=== PATIENT | female | born 1985 | race Two or more races ===

== ENCOUNTER 2023-08-10 01:25 | Inpatient (IN) | payer MEDICAID ==
[~2023-08-10] VITALS: Ht 170.2 cm; Wt 70.9 kg
[~2023-08-10 01:25] MED LIST: RISP0.5T39 PO
[2023-08-10 03:25] LABS: BASOPHILS % (AUTO) 0.2 % (0.0-2.0); EOSINOPHILS % (AUTO) 0 % (1.0-6.0); HEMATOCRIT 35.7 % (36-46); LYMPHOCYTES # (AUTO) 0.9 K/uL (1.0-4.8); LYMPHOCYTES % (AUTO) 8.5 % (22.0-44.0); MEAN CORPUSCULAR HGB CONC 33.7 G/dL (31.0-37.0); MEAN CORPUSCULAR VOLUME 92 fL (80-100); MONOCYTES # (AUTO) 0.3 K/uL (0.1-1.0); MONOCYTES % (AUTO) 3.2 % (2.0-9.0); NEUTROPHILS # (AUTO) 9.1 K/uL (1.8-7.7); PLATELET COUNT (AUTO) 292 K/uL (150-450); RED BLOOD CELL COUNT(AUTO) 3.88 MIL/uL (4.00-5.20); RED CELL DISTRIBUTION WIDTH 13.6 % (11.5-14.5); WHITE BLOOD COUNT (AUTO) 10.3 K/uL (4.5-11.0)
[2023-08-10 03:30] LABS: NEUTROPHILS % (AUTO) 88.1 % (40.0-70.0)
[2023-08-10 03:34] LABS: CHLORIDE 103 mmol/L (98-107); POTASSIUM 3.6 mmol/L (3.5-5.1); SODIUM SERUM 137 mmol/L (136-145)
[2023-08-10 03:35] LABS: ANION GAP 9 mmol/L (8-16); CALCIUM, TOTAL 8.9 mg/dL (8.8-10.5); CARBON DIOXIDE 25 mmol/L (22-29); CREATININE 0.82 mg/dL (0.60-1.30); GLOMERULAR FILTR. RATE CALC > 60 mL/min (>60); GLUCOSE,RANDOM 114 mg/dL (70-110); UREA NITROGEN, BLOOD 17 mg/dL (7-18)
[2023-08-10 03:42] LABS: ALANINE AMINOTRANSFERASE 20 U/L (12-78); ALBUMIN 3.8 g/dL (3.4-5.0); ALKALINE PHOSPHATASE 68 U/L (46-116); ASPARTATE AMINOTRANSFERASE 20 U/L (15-37); BILIRUBIN,TOTAL 0.2 mg/dL (0.1-1.0); TOTAL PROTEIN, SERUM 7.4 g/dL (6.4-8.2)
[2023-08-10 03:43] LABS: ALCOHOL, BLOOD (SERUM) < 3 mg/dL (0-10)
[2023-08-10] MEDS ORDERED: DiphenhydrAMINE HCL 50 MG/ML VIAL IM ONE (03:45)
[2023-08-10] MEDS ORDERED: PERTUSS(ACELL),DIPH,TET VAC/PF 0.5 ML SYRINGE IM. ONE (03:45)
[2023-08-10] MEDS ORDERED: HALOPERIDOL 5 MG TABLET PO PRN (03:45)
[2023-08-10] MEDS ORDERED: LORazepam 2 MG TABLET PO PRN (03:45)
[2023-08-10] MEDS ORDERED: LORazepam 2 MG/ML VIAL IM ONE (03:45)
[2023-08-10] MEDS ORDERED: HALOPERIDOL LACTATE 5 MG/ML VIAL IM ONE (03:45)
[2023-08-10] MEDS ORDERED: ZOLPIDEM TARTRATE 10 MG TABLET PO PRN (03:45)
[2023-08-10 05:20] LABS: COVID AG,FIA SOURCE NASAL SWAB
[2023-08-10 05:51] LABS: SARS-COV2 (COVID) ANTIGEN,FIA Negative (Negative)
[2023-08-10 11:07] LABS: APPEARANCE,URINE CLEAR (CLEAR); BILIRUBIN,URINE NEGATIVE (NEGATIVE); COLOR,URINE YELLOW (YELLOW); GLUCOSE, URINE (UA) NEGATIVE (NEGATIVE); KETONES,URINE NEGATIVE (NEGATIVE); LEUKOCYTE ESTERASE ,URINE NEGATIVE (NEGATIVE); NITRATE,URINE NEGATIVE (NEGATIVE); OCCULT BLOOD,URINE MODERATE (NEGATIVE); PROTEIN,URINE 30-70 mg/dL (NEGATIVE); SPECIFIC GRAVITIY, URINE 1.031 (1.003-1.030); UROBILINOGEN,URINE <=1.0 mg/dL (<=1.0)
[2023-08-10 11:12] LABS: ALCOHOL, URINE DRUG SCREEN NEGATIVE (NEGATIVE); AMPHET/METH SCREEN,URINE POSITIVE (NEGATIVE); BARBITURATE SCREEN, URINE NEGATIVE (NEGATIVE); BENZODIAZEPINES SCREEN,URINE NEGATIVE (NEGATIVE); CANNABINOID SCREEN,URINE NEGATIVE (NEGATIVE); COCAINE SCREEN,URINE NEGATIVE (NEGATIVE); METHADONE SCREEN, URINE NEGATIVE (NEGATIVE); OPIATE SCREEN,URINE NEGATIVE (NEGATIVE); PHENCYCLIDINE SCREEN,URINE NEGATIVE (NEGATIVE)
[2023-08-10 11:14] LABS: BACTERIA,URINE None Seen /HPF (None Seen); WBC,URINE 0-2 /HPF (0-5)
[2023-08-10 13:36] VITALS: BP 101/72; PULSE 67; RESP 18; TEMP 98; O2SAT 98
[2023-08-10 20:17] VITALS: BP 100/77; PULSE 70; RESP 19; TEMP 97.9; O2SAT 100
[2023-08-11 08:46] VITALS: BP 110/72; PULSE 77; RESP 18; TEMP 97.1; O2SAT 98
[2023-08-11] MEDS: SERTRALINE HCL 50 MG TABLET PO SCH (13:37)
[2023-08-11] MEDS ORDERED: MAGNESIUM HYDROXIDE SUSPENSION 30 ML UDCUP PO PRN (14:15)
[2023-08-11] MEDS ORDERED: PETROLATUM,WHITE 28 GM JELLY TP PRN (14:15)
[2023-08-11] MEDS ORDERED: DOCUSATE SODIUM 100 MG CAPSULE PO PRN (14:15)
[2023-08-11] MEDS ORDERED: LOPERAMIDE HCL 2 MG CAPSULE PO PRN (14:15)
[2023-08-11] MEDS ORDERED: IBUPROFEN 400 MG TABLET PO PRN (14:15)
[2023-08-11] MEDS ORDERED: ALBUTEROL SULFATE HFA 90 MCG/PUFF 8 GM INHALER IH PRN (14:15)
[2023-08-11] MEDS ORDERED: MAG HYDROX/AL HYDROX/SIMETH ES 30 ML SUSPENSION UDCUP PO PRN (14:15)
[2023-08-11] MEDS ORDERED: NICOTINE 14 MG/24 HOUR PATCH TD PRN (14:15)
[2023-08-11] MEDS ORDERED: CloNIDine HCL 0.1 MG TABLET PO PRN (14:15)
[2023-08-11] MEDS ORDERED: GuaiFENesin/D-METHORPHAN [SUGAR-FREE] 200-20MG/10 ML SYRUP UDCUP PO PRN (14:15)
[2023-08-11] MEDS ORDERED: ONDANSETRON HCL 4 MG TABLET PO PRN (14:15)
[2023-08-11] MEDS ORDERED: ACETAMINOPHEN 325 MG TABLET PO PRN (14:15)
[2023-08-11] MEDS: RisperiDONE 1 MG TABLET PO SCH (16:19)
[2023-08-11] MEDS: TraZODone HCL 100 MG TABLET PO SCH (21:21)
[2023-08-11 22:32] VITALS: BP 122/76; PULSE 95; RESP 17; TEMP 98.2; O2SAT 95
[2023-08-12 08:15] LABS: CHOL/HDL RATIO 3.1 (3.9-5.7); THYROID STIMULATING HORMONE 0.67 uIU/mL (0.36-3.74)
[2023-08-12 08:20] LABS: HEMOGLOBIN A1C 5.2 % (3.8-5.6)
[2023-08-12] MEDS: SERTRALINE HCL 50 MG TABLET PO SCH (08:51)
[2023-08-12] MEDS: RisperiDONE 1 MG TABLET PO SCH ×2 (08:51→16:38)
[2023-08-12 20:06] VITALS: BP 107/67; PULSE 74; RESP 19; TEMP 97.8
[2023-08-12] MEDS: TraZODone HCL 100 MG TABLET PO SCH (20:29)
[2023-08-13 08:39] VITALS: BP 117/77; PULSE 86; RESP 19; TEMP 97.9; O2SAT 99
[2023-08-13] MEDS: SERTRALINE HCL 50 MG TABLET PO SCH (08:53)
[2023-08-13] MEDS: RisperiDONE 1 MG TABLET PO SCH ×2 (08:53→16:37)
[2023-08-13] MEDS: TraZODone HCL 100 MG TABLET PO SCH (20:23)
[2023-08-13 21:32] VITALS: RESP 19
[2023-08-14 08:43] VITALS: BP 118/78; PULSE 86; RESP 18; TEMP 97.9; O2SAT 99
[2023-08-14] MEDS: RisperiDONE 1 MG TABLET PO SCH ×2 (09:25→17:18)
[2023-08-14] MEDS: SERTRALINE HCL 50 MG TABLET PO SCH (09:25)
[2023-08-14] MEDS: TraZODone HCL 100 MG TABLET PO SCH (20:44)
[2023-08-14 21:03] VITALS: BP 106/61; PULSE 75; RESP 17; TEMP 97.9; O2SAT 96
[2023-08-15] MEDS: RisperiDONE 1 MG TABLET PO SCH ×2 (09:39→17:15)
[2023-08-15] MEDS: SERTRALINE HCL 50 MG TABLET PO SCH (09:39)
[2023-08-15 09:55] VITALS: BP 94/65; PULSE 72; RESP 17; TEMP 98.3; O2SAT 97
[2023-08-15 20:40] VITALS: BP 110/75; PULSE 64; RESP 18; TEMP 98; O2SAT 97
[2023-08-15] MEDS: TraZODone HCL 100 MG TABLET PO SCH (20:46)
[2023-08-16 08:10] VITALS: BP 100/66; PULSE 65; RESP 17; TEMP 98.5; O2SAT 100
[2023-08-16 08:28] VITALS: BP 100/66; PULSE 65; RESP 17; TEMP 98.5; O2SAT 100
[2023-08-16] MEDS: SERTRALINE HCL 50 MG TABLET PO SCH (09:55)
[2023-08-16] MEDS: RisperiDONE 1 MG TABLET PO SCH ×2 (09:55→16:01)
[2023-08-16 16:36] VITALS: BP 118/60; PULSE 80; RESP 18; TEMP 98.7; O2SAT 96
[2023-08-16] MEDS: TraZODone HCL 100 MG TABLET PO SCH (20:12)
[2023-08-16 20:40] VITALS: BP 118/60; PULSE 80; RESP 18; TEMP 98.7; O2SAT 96
[2023-08-17 08:46] VITALS: BP 118/65; PULSE 83; RESP 18; TEMP 97.9; O2SAT 100
[2023-08-17] MEDS: SERTRALINE HCL 50 MG TABLET PO SCH (09:58)
[2023-08-17] MEDS: RisperiDONE 1 MG TABLET PO SCH ×2 (09:58→16:53)
[2023-08-17 20:19] VITALS: BP 112/62; PULSE 74; RESP 18; TEMP 97.6; O2SAT 97
[2023-08-17] MEDS: TraZODone HCL 100 MG TABLET PO SCH (20:41)
[2023-08-18 08:31] VITALS: BP 100/60; PULSE 70; RESP 18; TEMP 98; O2SAT 99
[2023-08-18] MEDS: SERTRALINE HCL 50 MG TABLET PO SCH (10:08)
[2023-08-18] MEDS: RisperiDONE 1 MG TABLET PO SCH ×2 (10:09→16:42)
[2023-08-18 20:01] VITALS: BP 109/70; PULSE 80; RESP 18; TEMP 96.7
[2023-08-18] MEDS: TraZODone HCL 100 MG TABLET PO SCH (21:02)
[2023-08-18 21:08] VITALS: BP 109/70; PULSE 80; RESP 18; TEMP 96.7; O2SAT 93
[2023-08-19] MEDS: RisperiDONE 1 MG TABLET PO SCH ×2 (08:38→16:09)
[2023-08-19] MEDS: SERTRALINE HCL 50 MG TABLET PO SCH (08:38)
[2023-08-19 09:05] VITALS: BP 105/60; PULSE 80; RESP 19; TEMP 97.7; O2SAT 99
[2023-08-19 20:33] VITALS: BP 110/69; PULSE 71; RESP 18; TEMP 98
[2023-08-19] MEDS: TraZODone HCL 100 MG TABLET PO SCH (21:15)
[2023-08-20] MEDS: SERTRALINE HCL 50 MG TABLET PO SCH (08:27)
[2023-08-20] MEDS: RisperiDONE 1 MG TABLET PO SCH (08:27)
[2023-08-20 09:01] VITALS: BP 108/58; PULSE 73; RESP 18; TEMP 97.8; O2SAT 97
[2023-08-20] MEDS ORDERED: SERT-158 PO (10:53)
[2023-08-20] MEDS ORDERED: RISP1TAB98 PO ×2 (10:53→18:20)
[2023-08-20] MEDS ORDERED: TRAZ-257 PO ×2 (10:54→18:20)
[2023-08-20] MEDS ORDERED: SERT-439 PO (18:20)
== END 2023-08-20 15:42 | disposition home or self-care (01) | DRG 751 ==
LOC: EDBD 01:26 → EMS 01:26 → B2S 10:58
PROVIDERS: ADMIT Psychiatry & Neurology Child & Adolescent Psychiatry; ATTEND Psychiatry & Neurology Child & Adolescent Psychiatry
DX: F33.3 Major depressive disorder, recurrent, severe with psychotic symptoms (principal); R45.851 Suicidal ideations; F41.9 Anxiety disorder, unspecified; G47.00 Insomnia, unspecified; R73.9 Hyperglycemia, unspecified; F15.90 Other stimulant use, unspecified, uncomplicated; Z20.822 Contact with and (suspected) exposure to COVID-19
CPT/HCPCS: 80053; 80061; 80307; 81001; 83036; 84443; 84703; 85025; 99285; G0480; J1200; J1630; J2060